=== PATIENT | female | born 1970 | race Caucasian/White ===

== ENCOUNTER → 2018-12-23 | Outpatient (CLI) | payer OTHER ==
--- NOTE | 2018-12-27 09:48 | US ---
EXAMINATION TYPE: US pelvis complete transvag DATE OF EXAM: 12/23/2018 COMPARISON: Pelvic ultrasound February 29, 2012 CLINICAL HISTORY: R10.2 Pelvic and perineal pain. History of endometriosis. TECHNIQUE: Transvaginal (TV) and Transabdominal (TA) . Transabdominal sonographic images of the pel vis were acquired. Transvaginal sonographic images were medically necessary to better assess the fol lowing anatomy: ovaries Date of LMP: 12/09/2018 EXAM MEASUREMENTS: Uterus: 10.6 x 4.4 x 5.0 cm Endometrial Stripe: 0.8 cm Right Ovary: 3.3 x 1.6 x 1.6 cm Left Ovary: 2.9 x 2.2 x 1.7 cm History of C section 1. Uterus: Anteverted wnl 2. Endometrium: wnl 3. Right Ovary: wnl 4. Left Ovary: wnl 5. Bilateral Adnexa: wnl 6. Posterior cul-de-sac: no free fluid Anteverted uterus is seen. Endometrial stripe is within normal limits for early secretory phase of me nstrual cycle. No free fluid is seen in pelvic cul-de-sac. Both ovaries are seen best during transvaginal evaluation and are normal in size. No suspicious adnex al masses are seen. IMPRESSION: No suspicious finding is seen to account for patient's symptoms of pain.
== END | disposition home or self-care (01) ==
LOC: RADUSWWP 16:05
PROVIDERS: ATTEND Internal Medicine
DX: R10.2 Pelvic and perineal pain (principal)
CPT/HCPCS: 76830; 76856

== ENCOUNTER 2019-02-02 10:36 | Emergency (ER) | payer OTHER ==
[2019-02-02 10:41] VITALS: RESP 18
--- NOTE | 2019-02-02 11:18 | ED ---
General Adult HPI - General Chief complaint: Abdominal Pain Stated complaint: abd pain Time Seen by Provider: 02/02/19 10:45 Source: patient, RN notes reviewed Mode of arrival: ambulatory Limitations: no limitations - History of Present Illness Initial comments: 48-year-old female presents to the emergency department for a chief complaint of lower abdominal pain x 2 months. Patient states she has had a lower abdominal cramping pain for about 2 months. Patient states this comes and goes in nature. However in the past week pain has worsened. 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 Dallas. Patient did receive an ultrasound which was negative at that time and although she does have an history of endometriosis Dr. Dallas did not think this was associated. Patient has not had a colonoscopy. Patient denies any bladder or bowel changes. Denies any difficult to produce a stool. No melena or hematochezia. Patient denies any nausea or vomiting. She denies any upper abdominal pain. Patient denies fevers or chills. Patient has no other complaints at this time including shortness of breath, chest pain, nausea or vomiting, headache, or visual changes. - Related Data Home Medications Medication Instructions Recorded Confirmed Cyanocobalamin (Vitamin B-12) 1,000 mcg PO DAILY 02/02/19 02/02/19 [Vitamin B-12] Ibuprofen [Motrin Ib] 200 - 600 mg PO Q6H PRN 02/02/19 02/02/19 Levothyroxine/Liothyronine 97 mcg PO HS 02/02/19 02/02/19 Multivitamin,Therapeutic [Thera] 1 tab PO DAILY 02/02/19 02/02/19 Ubidecarenone [Co Q-10] 100 mg PO DAILY 02/02/19 02/02/19 Allergies Allergy/AdvReac Type Severity Reaction Status Date / Time No Known Allergies Allergy Verified 02/02/19 11:53 Review of Systems ROS Statement: Those systems with pertinent positive or pertinent negative responses have been documented in the HPI. ROS Other: All systems not noted in ROS Statement are negative. Past Medical History Past Medical History: Thyroid Disorder History of Any Multi-Drug Resistant Organisms: None Reported Past Surgical History: Hernia Repair, Orthopedic Surgery Additional Past Surgical History / Comment(s): cranial nerve surgery Past Psychological History: No Psychological Hx Reported Smoking Status: Never smoker Past Alcohol Use History: Occasional Past Drug Use History: None Reported General Exam Limitations: no limitations General appearance: alert, in no apparent distress Head exam: Present: atraumatic, normocephalic, normal inspection Eye exam: Present: normal appearance, PERRL, EOMI. Absent: scleral icterus, conjunctival injection, periorbital swelling ENT exam: Present: normal exam, mucous membranes moist Neck exam: Present: normal inspection, full ROM. Absent: tenderness, men ingismus, lymphadenopathy Respiratory exam: Present: normal lung sounds bilaterally. Absent: respiratory distress, wheezes, rales, rhonchi, stridor Cardiovascular Exam: Present: regular rate, normal rhythm, normal heart sounds. Absent: systolic murmur, diastolic murmur, rubs, gallop, clicks GI/Abdominal exam: Present: soft, tenderness (minimal generalized lower abdominal tenderness), normal bowel sounds. Absent: distended, guarding, rebound, rigid Expanded GI/Abdominal exam: Absent: psoas sign, obturator sign, heel tap sign, Hart's sign, Rovsing's sign, tenderness at McBurney's Point, ascites Course Vital Signs 02/02/19 02/02/19 10:37 13:10 Temperature 98.2 F 98.1 F Pulse Rate 90 74 Respiratory 18 18 Rate Blood Pressure 144/82 117/83 O2 Sat by Pulse 99 98 Oximetry - Reevaluation(s) Reevaluation #1: 02/02/19 11:27 Ultrasound of the pelvis obtained on 12/23/2018 shows no suspicious findings. Medical Decision Making - Medical Decision Making 48-year-old female presents to the emergency department for the pain 2 months. Patient states the pain is cramping in nature. Patient states it worsened over the past week especially last night. Pain has resolved somewhat on presentation. On exam very minimal lower abdominal tenderness. I did recommend CAT scan to patient to evaluate for cause of pain. However patient initially refuses this stating she is very concerned about the radiation as she has had multiple x-rays for her life and would prefer to have an MRI or colonoscopy done. I did state that we cannot give these to the emergency department but CAT scan is the recommended modality through ER. Patient discussed with her for about one hour whether they would like to do the CAT scan and ultimately decided against it. I did educate them that it would be able to determine and rule out multiple causes however she was still rather follow up with GI for an imaging modality that does not utilize radiation. On reevaluation patient is standing comfortably and does not seem in distress whatsoever. Pain has improved significantly. CBC CMP are unremarkable. Urine negative, hCG negative. She has an appointment with her GI physician in 20 days. She will return here sooner if symptoms worsen. - Lab Data Result diagrams: 02/02/19 11:00 02/02/19 11:00 Lab Results 02/02/19 02/02/19 02/02/19 Range/Units 11:00 11:00 11:20 WBC 6.3 (3.8-10.6) k/uL RBC 4.51 (3.80-5.40) m/uL Hgb 13.6 (11.4-16.0) gm/dL Hct 40.4 (34.0-46.0) % MCV 89.7 (80.0-100.0) fL MCH 30.2 (25.0-35.0) pg MCHC 33.6 (31.0-37.0) g/dL RDW 13.7 (11.5-15.5) % Plt Count 257 (150-450) k/uL Neutrophils % 53 % Lymphocytes % 37 % Monocytes % 5 % Eosinophils % 2 % Basophils % 1 % Neutrophils # 3.3 (1.3-7.7) k/uL Lymphocytes # 2.3 (1.0-4.8) k/uL Monocytes # 0.3 (0-1.0) k/uL Eosinophils # 0.1 (0-0.7) k/uL Basophils # 0.0 (0-0.2) k/uL Sodium 141 (137-145) mmol/L Potassium 4.4 (3.5-5.1) mmol/L Chloride 106 (98-107) mmol/L Carbon Dioxide 27 (22-30) mmol/L Anion Gap 8 mmol/L BUN 10 (7-17) mg/dL Creatinine 0.68 (0.52-1.04) mg/dL Est GFR (CKD-EPI)AfAm >90 (>60 ml/min/1.73 sqM) Est GFR (CKD-EPI)NonAf >90 (>60 ml/min/1.73 sqM) Glucose 94 (74-99) mg/dL Calcium 10.1 (8.4-10.2) mg/dL Total Bilirubin 0.5 (0.2-1.3) mg/dL AST 24 (14-36) U/L ALT 26 (9-52) U/L Alkaline Phosphatase 33 L (38-126) U/L Total Protein 7.7 (6.3-8.2) g/dL Albumin 4.8 (3.5-5.0) g/dL Amylase 48 (30-110) U/L Lipase 96 (23-300) U/L Urine Color Urine Appearance (Clear) Urine pH (5.0-8.0) Ur Specific [place] (1.001-1.035) Urine Protein (Negative) Urine Glucose (UA) (Negative) Urine Ketones (Negative) Urine Blood (Negative) Urine Nitrite (Negative) Urine Bilirubin (Negative) Urine Urobilinogen (<2.0) mg/dL Ur Leukocyte Esterase (Negative) Urine HCG, Qual Not Detected (Not Detectd) 02/02/19 Range/Units 11:20 WBC (3.8-10.6) k/uL RBC (3.80-5.40) m/uL Hgb (11.4-16.0) gm/dL Hct (34.0-46.0) % MCV (80.0-100.0) fL MCH (25.0-35.0) pg MCHC (31.0-37.0) g/dL RDW (11.5-15.5) % Plt Count (150-450) k/uL Neutrophils % % Lymphocytes % % Monocytes % % Eosinophils % % Basophils % % Neutrophils # (1.3-7.7) k/uL Lymphocytes # (1.0-4.8) k/uL Monocytes # (0-1.0) k/uL Eosinophils # (0-0.7) k/uL Basophils # (0-0.2) k/uL Sodium (137-145) mmol/L Potassium (3.5-5.1) mmol/L Chloride (98-107) mmol/L Carbon Dioxide (22-30) mmol/L Anion Gap mmol/L BUN (7-17) mg/dL Creatinine (0.52-1.04) mg/dL Est GFR (CKD-EPI)AfAm (>60 ml/min/1.73 sqM) Est GFR (CKD-EPI)NonAf (>60 ml/min/1.73 sqM) Glucose (74-99) mg/dL Calcium (8.4-10.2) mg/dL Total Bilirubin (0.2-1.3) mg/dL AST (14-36) U/L ALT (9-52) U/L Alkaline Phosphatase (38-126) U/L Total Protein (6.3-8.2) g/dL Albumin (3.5-5.0) g/dL Amylase (30-110) U/L Lipase (23-300) U/L Urine Color Light Yellow Urine Appearance Clear (Clear) Urine pH 5.5 (5.0-8.0) Ur Specific [place] 1.007 (1.001-1.035) Urine Protein Negative (Negative) Urine Glucose (UA) Negative (Negative) Urine Ketones Negative (Negative) Urine Blood Negative (Negative) Urine Nitrite Negative (Negative) Urine Bilirubin Negative (Negative) Urine Urobilinogen <2.0 (<2.0) mg/dL Ur Leukocyte Esterase Negative (Negative) Urine HCG, Qual (Not Detectd) Disposition Clinical Impression: Abdominal pain Disposition: HOME SELF-CARE Condition: Good Instructions (If sedation given, give patient instructions): Abdominal Pain (ED) Additional Instructions: Please follow up with GI or primary care in 1-2 days. If pain is worsening return here to the emergency department where CAT scan can be completed. Is patient prescribed a controlled substance at d/c from ED?: No Referrals: Marguerite Nelson MD [REFERRING] - 1-2 days Tay Hoang MD [STAFF PHYSICIAN] - 1-2 days Mariluz Mcgovern MD [STAFF PHYSICIAN] - 1-2 days Time of Disposition: 12:55
[2019-02-02] MEDS ORDERED: SODIUM CHLORIDE 0.9% 1,000 ML IV STA (11:19)
[2019-02-02 11:33] LABS: Basophils % (A) 1 %; Eosinophils # (A) 0.1 k/uL (0-0.7); Eosinophils % (A) 2 %; HCT 40.4 % (34.0-46.0); HGB 13.6 gm/dL (11.4-16.0); Lymphocytes # (A) 2.3 k/uL (1.0-4.8); Lymphocytes % (A) 37 %; MCH 30.2 pg (25.0-35.0); MCHC 33.6 g/dL (31.0-37.0); MCV 89.7 fL (80.0-100.0); Mean Platelet Volume 7.5; Monocytes # (A) 0.3 k/uL (0-1.0); Monocytes % (A) 5 %; Neutrophils # (A) 3.3 k/uL (1.3-7.7); Neutrophils % (A) 53 %; Platelet Count 257 k/uL (150-450); RBC 4.51 m/uL (3.80-5.40); RDW 13.7 % (11.5-15.5); WBC 6.3 k/uL (3.8-10.6)
[2019-02-02 11:51] LABS: Appearance,Urine Clear (Clear); Bilirubin,Urine Negative (Negative); Blood,Urine Negative (Negative); Color,Urine Light Yellow; Glucose,Urine (UA) Negative (Negative); Ketones,Urine Negative (Negative); Leukocyte Esterase,Urine Negative (Negative); Nitrite,Urine Negative (Negative); PH, Urine 5.5 (5.0-8.0); Protein,Urine Negative (Negative); Specific Gravity,Urine 1.007 (1.001-1.035); Urobilinogen,Urine <2.0 mg/dL (<2.0)
[2019-02-02 11:57] LABS: ALT 26 U/L (9-52); AST 24 U/L (14-36); Albumin 4.8 g/dL (3.5-5.0); Alkaline Phosphatase 33 U/L (38-126); Amylase 48 U/L (30-110); Anion Gap 8 mmol/L; Blood Urea Nitrogen 10 mg/dL (7-17); Calcium 10.1 mg/dL (8.4-10.2); Carbon Dioxide 27 mmol/L (22-30); Chloride 106 mmol/L (98-107); Glucose 94 mg/dL (74-99); Lipase 96 U/L (23-300); Potassium 4.4 mmol/L (3.5-5.1); Sodium 141 mmol/L (137-145); Total Bilirubin 0.5 mg/dL (0.2-1.3); Total Protein 7.7 g/dL (6.3-8.2)
[2019-02-02 13:22] VITALS: BP 117/83; PULSE 74; TEMP 98.1
== END 2019-02-02 13:10 | disposition home or self-care (01) ==
LOC: EC 10:36
DX: R10.30 Lower abdominal pain, unspecified (principal); R10.817 Generalized abdominal tenderness; E07.9 Disorder of thyroid, unspecified; Z79.899 Other long term (current) drug therapy
CPT/HCPCS: 36415; 80053; 81003; 81025; 82150; 83690; 85025; 99284

== ENCOUNTER → 2019-05-15 | Outpatient (CLI) | payer OTHER ==
[2019-05-15 16:57] LABS: Basophils % (A) 1 %; Eosinophils # (A) 0.2 k/uL (0-0.7); Eosinophils % (A) 3 %; HCT 38.6 % (34.0-46.0); HGB 12.2 gm/dL (11.4-16.0); Lymphocytes # (A) 1.9 k/uL (1.0-4.8); Lymphocytes % (A) 35 %; MCH 29.5 pg (25.0-35.0); MCHC 31.7 g/dL (31.0-37.0); MCV 93.2 fL (80.0-100.0); Mean Platelet Volume 7.6; Monocytes # (A) 0.3 k/uL (0-1.0); Monocytes % (A) 6 %; Neutrophils # (A) 2.9 k/uL (1.3-7.7); Neutrophils % (A) 54 %; Platelet Count 219 k/uL (150-450); RBC 4.14 m/uL (3.80-5.40); RDW 13.6 % (11.5-15.5); WBC 5.5 k/uL (3.8-10.6)
[2019-05-16 01:23] LABS: DHEA Sulfate 77.9 ug/dL (26.0-430.0)
[2019-05-16 01:29] LABS: T4, Free (Free Thyroxine) 0.8 ng/dL (0.80-1.80)
== END | disposition home or self-care (01) ==
LOC: LABWHC1 15:24
PROVIDERS: ATTEND Specialist
DX: R73.09 Other abnormal glucose (principal); N94.3 Premenstrual tension syndrome; D50.9 Iron deficiency anemia, unspecified; D51.9 Vitamin B12 deficiency anemia, unspecified; M35.9 Systemic involvement of connective tissue, unspecified; E03.9 Hypothyroidism, unspecified; E78.6 Lipoprotein deficiency; E07.9 Disorder of thyroid, unspecified; E55.9 Vitamin D deficiency, unspecified; R68.82 Decreased libido; N80.9 Endometriosis, unspecified; F41.9 Anxiety disorder, unspecified; R41.3 Other amnesia; E83.9 Disorder of mineral metabolism, unspecified; R79.9 Abnormal finding of blood chemistry, unspecified; R53.83 Other fatigue; E63.9 Nutritional deficiency, unspecified; Z79.890 Hormone replacement therapy
CPT/HCPCS: 36415; 82627; 82728; 84439; 84443; 84481; 85025

== ENCOUNTER → 2019-12-08 | Outpatient (CLI) | payer OTHER ==
[2019-12-08 07:51] LABS: Basophils % (A) 0 %; Eosinophils # (A) 0.1 k/uL (0-0.7); Eosinophils % (A) 2 %; HCT 39.3 % (34.0-46.0); Lymphocytes # (A) 1.5 k/uL (1.0-4.8); Lymphocytes % (A) 39 %; MCH 30.7 pg (25.0-35.0); MCHC 33.2 g/dL (31.0-37.0); MCV 92.6 fL (80.0-100.0); Mean Platelet Volume 8.4; Monocytes # (A) 0.3 k/uL (0-1.0); Monocytes % (A) 7 %; Neutrophils % (A) 50 %; Platelet Count 233 k/uL (150-450); RBC 4.24 m/uL (3.80-5.40); RDW 12.9 % (11.5-15.5)
[2019-12-08 18:02] LABS: T4, Free (Free Thyroxine) 0.9 ng/dL (0.80-1.80)
[2019-12-08 18:26] LABS: Hemoglobin A1C 5.5 % (4.0-6.0)
== END | disposition home or self-care (01) ==
LOC: LABWHC1 07:15
PROVIDERS: ATTEND Specialist
DX: N94.3 Premenstrual tension syndrome (principal); R73.09 Other abnormal glucose; D50.9 Iron deficiency anemia, unspecified; D51.9 Vitamin B12 deficiency anemia, unspecified; E03.9 Hypothyroidism, unspecified; M35.9 Systemic involvement of connective tissue, unspecified; E07.9 Disorder of thyroid, unspecified; R68.82 Decreased libido; F41.9 Anxiety disorder, unspecified; R41.3 Other amnesia; E53.9 Vitamin B deficiency, unspecified; R53.83 Other fatigue; E83.9 Disorder of mineral metabolism, unspecified; E63.9 Nutritional deficiency, unspecified; Z79.890 Hormone replacement therapy; Z13.21 Encounter for screening for nutritional disorder
CPT/HCPCS: 36415; 82626; 82947; 83036; 83525; 84439; 84443; 84481; 85025

== ENCOUNTER → 2020-05-27 | Outpatient (CLI) | payer OTHER ==
[2020-05-27 19:19] LABS: Ferritin 23.3 ng/mL (10.0-291.0)
[2020-05-27 19:23] LABS: T4, Free (Free Thyroxine) 0.8 ng/dL (0.80-1.80)
[2020-05-27 19:27] LABS: Hemoglobin A1C 5.2 % (4.0-6.0)
== END | disposition home or self-care (01) ==
LOC: LABWHC1 07:02
PROVIDERS: ATTEND Specialist
DX: M35.9 Systemic involvement of connective tissue, unspecified (principal); E03.9 Hypothyroidism, unspecified; R41.3 Other amnesia; E83.9 Disorder of mineral metabolism, unspecified; E07.9 Disorder of thyroid, unspecified; N94.3 Premenstrual tension syndrome; R73.09 Other abnormal glucose; D50.9 Iron deficiency anemia, unspecified; D51.9 Vitamin B12 deficiency anemia, unspecified; R68.82 Decreased libido; E53.9 Vitamin B deficiency, unspecified; R53.83 Other fatigue; E63.9 Nutritional deficiency, unspecified; Z79.890 Hormone replacement therapy; Z13.21 Encounter for screening for nutritional disorder; F41.9 Anxiety disorder, unspecified; N80.9 Endometriosis, unspecified
CPT/HCPCS: 36415; 82627; 82728; 82947; 83036; 83525; 84439; 84443; 84481

== ENCOUNTER → 2020-05-30 | Outpatient (CLI) | payer OTHER ==
--- NOTE | 2020-05-31 09:49 | USB ---
Reason for exam: clinical finding. History: Patient is nulliparous. Indicated problem(s): palpable abnormality, lump or thickening, and pain in the right breast. Physical Findings: Nurse Summary: 2.5cm movable nodule (nurse dw). US Breast Limited RT Technologist: Laurel Segovia Right limited breast ultrasound including focal area of concern, retroareolar and axilla demonstrates a 1.8 x 1.7 x 1.3cm irregular, hypoechoic, vascular lesion at 10 o'clock and a 0.7 x 0.6 x 0.4cm mixed lesion at 9:30. These results were verbally communicated with the patient and result sheet given to the patient on 05/30/20. ASSESSMENT: Highly suggestive of malignancy, BI-RAD 5 RECOMMENDATION: Follow-up diagnostic mammogram of both breasts. Ultrasound core biopsy of the right breast. Called Dr. Dallas's office with mammographic findings and has scheduled an appointment for the patient for 07/11/20 at 8:[address] Mejia. Biopsy scheduled for 06/06/20 at 1:00. PRELIMINARY REPORT CALLED AND FAXED TO DR. MEJIA ON 05/31/20.
--- NOTE | 2020-05-31 09:51 | MM ---
Reason for exam: clinical finding. Last mammogram was performed 2 years and 9 months ago. History: Patient is nulliparous. Indicated problem(s): palpable abnormality, lump or thickening, and pain in the right breast. MG 3D Diag Mammo W/Cad CATA Bilateral CC and MLO view(s) were taken. Prior study comparison: September 01, 2017, bilateral MG 3d diag mammo w/cad CATA. September 05, 2013, CAD bilateral diagnostic mammogram. The breast tissue is heterogeneously dense. This may lower the sensitivity of mammography. Finding: There are intermediate concern, suspicious calcifications in the 1 o'clock position of the right breast consistent with ultrasound mass 6-7cm from the nipple. These results were verbally communicated with the patient and result sheet given to the patient on 05/30/20. ASSESSMENT: Suspicious, BI-RAD 4 RECOMMENDATION: Surgical consultation and ultrasound core biopsy of the right breast. Called Dr. Dallas's office with mammographic findings and has scheduled an appointment for the patient for 07/11/20 at 8:[address] Veliz. Biopsy scheduled for 06/06/20 at 1:00. PRELIMINARY REPORT CALLED AND FAXED TO DR. VELIZ ON 05/31/20.
== END | disposition home or self-care (01) ==
LOC: RADUSWWP 09:44
PROVIDERS: ATTEND Obstetrics & Gynecology
DX: R92.8 Other abnormal and inconclusive findings on diagnostic imaging of breast (principal); N63.11 Unspecified lump in the right breast, upper outer quadrant
CPT/HCPCS: 77062; 77066

== ENCOUNTER → 2020-06-06 | Day surgery (SDC) | payer OTHER ==
[2020-06-06 12:22] VITALS: RESP 18; TEMP 98.5
--- NOTE | 2020-06-06 13:42 | USB ---
EXAMINATION TYPE: US biopsy breast VAD RT DATE OF EXAM: 06/06/2020 CLINICAL HISTORY: R92.8 ABN MAMMO. Abnormal ultrasound. TECHNIQUE: Ultrasound guided core biopsy of right breast. COMPARISON: Prior mammogram and ultrasound May 30, 2020 and older studies. FINDINGS: The procedure of ultrasound guided core biopsy was explained to the patient. Benefits, alternatives, and risks were discussed. An informed consent was then obtained. Case discussed with patient and patient prior to performing. They wished not to have clip placement if possible. The patient was placed in supine positioning for imaging and for the procedure. Preprocedure ultrasound redemonstrates irregular hypoechoic lesion 10:00 position zone BC measuring roughly 1.5 cm long axis. The overlying skin was prepped and draped in usual sterile fashion. Lidocaine is used as anesthetic into the skin and subcutaneous tissue. Lidocaine with epinephrine is used as anesthetic into the deeper tissue up to area of concern in the right breast. Under ultrasound guidance, a vacuum assisted biopsy gun device was used to obtain 3 core samples. Following this, a biopsy clip was deferred due to patient preference, the lesion is still well visualized after sampling and can be localized under ultrasound guidance if desired. The patient tolerated the procedure well without any immediate complication. The patient was kept in the radiology department for short stay after the procedure and then discharged home in stable condition. IMPRESSION: Successful, uncomplicated ultrasound guided core biopsy of area of concern in the right breast, full pathology results to follow. Fairly high index of suspicion noted at time of procedure. 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 See Surgical Pathology Cancer Case Summary. Recommendation Surgical consult of the right breast. RADHA
[2020-06-06 13:55] VITALS: BP 115/68; PULSE 74
== END ==
LOC: RADUSWWP 12:05
PROVIDERS: ATTEND Surgery
DX: C50.911 Malignant neoplasm of unspecified site of right female breast (principal); Z17.0 Estrogen receptor positive status [ER+]
CPT/HCPCS: 88305; 88342; 88341; 19083; J2001

== ENCOUNTER 2020-06-20 11:21 | Day surgery (SDC) | payer OTHER ==
[2020-06-20] MEDS ORDERED: LACTATED RINGERS 1,000 ML IV ONE ×2 (13:04→15:01)
[2020-06-20] MEDS ORDERED: ONDANSETRON 4 MG/2 ML VIAL ONE (13:06)
[2020-06-20] MEDS ORDERED: HEPARIN SODIUM,PORCINE 5,000 UNIT/ML 1 ML VIAL ONE (13:06)
[2020-06-20] MEDS ORDERED: ACETAMINOPHEN TAB 500 MG TAB ONE (13:06)
--- NOTE | 2020-06-20 13:52 | P.GSHP ---
History of Present Illness H&P Date: 06/20/20 Chief Complaint: Right breast cancer Patient here today for Port-A-Cath placement. Recently diagnosed with HER-2 positive right-sided breast cancer 2 cm. Patient has not had a port previously. Plans for neoadjuvant chemotherapy to begin in the next 1-2 weeks. Past Medical History Past Medical History: Thyroid Disorder History of Any Multi-Drug Resistant Organisms: None Reported Past Surgical History: Section, Hernia Repair, Orthopedic Surgery Additional Past Surgical History / Comment(s): cranial nerve surgery, metal pin in right leg Past Anesthesia/Blood Transfusion Reactions: Postoperative Nausea & Vomiting (PONV) Past Psychological History: No Psychological Hx Reported Smoking Status: Never smoker Past Alcohol Use History: Occasional Past Drug Use History: None Reported Medications and Allergies Home Medications Medication Instructions Recorded Confirmed Type Cyanocobalamin (Vitamin B-12) 1,000 mcg PO DAILY 02/02/19 06/20/20 History [Vitamin B-12] Ibuprofen [Motrin Ib] 200 - 600 mg PO Q6H PRN 02/02/19 06/20/20 History Levothyroxine/Liothyronine 97 mcg PO AC-BRKFST 02/02/19 06/20/20 History Multivitamin,Therapeutic [Thera] 1 tab PO DAILY 02/02/19 06/20/20 History Ubidecarenone [Co Q-10] 100 mg PO DAILY 02/02/19 06/20/20 History ALPRAZolam [Xanax] 0.25 mg PO BID PRN 06/06/20 06/20/20 History Allergies Allergy/AdvReac Type Severity Reaction Status Date / Time No Known Allergies Allergy Verified 06/20/20 12:43 Surgical - Exam Vital Signs Temp Pulse Resp BP Pulse Ox 99.0 F 81 16 131/78 98 06/20/20 12:51 06/20/20 12:51 06/20/20 12:51 06/20/20 12:51 06/20/20 12:51 Physical exam: General: Well-developed, well-nourished HEENT: Normocephalic, sclerae nonicteric Abdomen: Nontender, nondistended Extremities: No edema Neuro: Alert and oriented Assessment and Plan (1) Breast cancer in female Narrative/Plan: Will proceed with Port-A-Cath placement at this time. Risks of bleeding, infection, DVT, pneumothorax, catheter malfunction, anesthesia related complications were discussed. The patient understands and wishes to proceed. Current Visit: Yes Status: Acute Code(s): C50.919 - MALIGNANT NEOPLASM OF UNSP SITE OF UNSPECIFIED FEMALE BREAST SNOMED Code(s): 266949017
[2020-06-20] MEDS ORDERED: LIDOCAINE 1% INJ 10MG/ML (20 ML MDV) ONE (14:40)
[2020-06-20] MEDS ORDERED: fentaNYL (PF) 50 MCG/ML 2 ML AMP ONE (14:40)
[2020-06-20] MEDS ORDERED: PROPOFOL 10 MG/ML 20 ML VIAL IV ONE (14:40)
[2020-06-20] MEDS ORDERED: MIDAZOLAM 2 MG/2 ML VIAL ONE (14:40)
[2020-06-20] MEDS ORDERED: LIDOCAINE 1% INJ 10MG/ML (20 ML MDV) SQ ONE ×2 (15:11→15:30)
[2020-06-20] MEDS ORDERED: traMADol 50 MG TAB PO PRN (15:47)
[2020-06-20] MEDS ORDERED: NALOXONE 0.4 MG/ML 1 ML VIAL IV PRN (15:47)
--- NOTE | 2020-06-20 15:52 | P.OP ---
Date of Procedure: 06/20/20 Procedure(s) Performed: PREOPERATIVE DIAGNOSIS: Right-sided breast cancer POSTOPERATIVE DIAGNOSIS: Same PROCEDURE: Port-A-Cath placement with fluoroscopic and ultrasound guidance SURGEON: Jose Alfredo EBL: Minimal ANESTHESIA: Sedation COMPLICATIONS: None OPERATIVE PROCEDURE: Patient was brought and placed on the operative table in the supine position. The patient was sedated per anesthesia that time. The chest and neck were prepped and draped in usual sterile fashion. The ultrasound probe was used to identify the location of the left internal jugular vein. The skin was localized with lidocaine. The Seldinger needle was advanced into the IJ under ultrasound guidance. The wire was advanced through the needle under fluoroscopic guidance into the superior vena cava. A port pocket was created in the left infraclavicular location. The catheter was tunneled from the wire entrance site to the port pocket. The port was then connected to the catheter. The dilator introducer was threaded over the guidewire. The guidewire and dilator were then removed. The catheter was advanced through the introducer and introducer was then removed. The tip was seen to be in the right atrial junction via fluoroscopy. A picture of the radiograph showing the tip at the radial digital junction was taken. Port was flushed with both saline and a Hep- Lock solution. There was good flow both in and out of the port. The port was sutured in underlying tissues using 3-0 silk sutures. The subcutaneous tissues were reapproximated using 3-0 Vicryl sutures and the skin at both locations using 4-0 Monocryl sutures. Skin glue and sterile dressings then applied. DISPOSITION: Stable to recovery room
[2020-06-20 15:58] VITALS: TEMP 96.8
[2020-06-20 16:02] VITALS: RESP 18
[2020-06-20] MEDS ORDERED: traMADol 50 MG TAB ONE (16:46)
--- NOTE | 2020-06-20 16:50 | FL ---
EXAMINATION TYPE: FL guided central line placement DATE OF EXAM: 06/20/2020 FLUOROSCOPY Fluoroscopy time of 22 seconds was used during Port-A-Cath placement. 1 image/s document/s sarah gordon.
--- NOTE | 2020-06-20 17:56 | XR ---
EXAMINATION TYPE: XR chest 1V DATE OF EXAM: 06/20/2020 COMPARISON: NONE HISTORY: Check catheter placement TECHNIQUE: Single view FINDINGS: There is left-sided central venous catheter with the tip in the superior vena cava. Heart a nd mediastinum are normal. There is increased density at the right cardiac border there is probably s ome infiltrate in the posterior right lower lobe. Bony thorax is intact. There is also increased left paraspinal density behind the heart in the left lower lobe. IMPRESSION: Catheter in good position. There is evidence of some bilateral paraspinal infiltrates or mass in the lower chest.
[2020-06-20 18:16] VITALS: BP 113/74; PULSE 62
[2020-06-21] MEDS ORDERED: Pre Op ABX Message 1 EACH MISC MISCELLANE ONE (05:00)
[2020-06-21] MEDS ORDERED: ACETAMINOPHEN TAB 500 MG TAB PO ONE (05:00)
[2020-06-21] MEDS ORDERED: HEPARIN SODIUM,PORCINE 5,000 UNIT/ML 1 ML VIAL SQ ONE (06:00)
== END 2020-06-20 18:17 | disposition home or self-care (01) ==
LOC: OR 11:21
PROVIDERS: ATTEND Surgery
DX: C50.911 Malignant neoplasm of unspecified site of right female breast (principal); E07.9 Disorder of thyroid, unspecified; Z87.19 Personal history of other diseases of the digestive system; Z98.890 Other specified postprocedural states; Z79.1 Long term (current) use of non-steroidal anti-inflammatories (NSAID); Z79.890 Hormone replacement therapy; Z79.899 Other long term (current) drug therapy
CPT/HCPCS: 36561; 81025; 77001; 71045; C1788; J2250; J1644; J0690; J2405; J2001; J3010; J1642; J2704

== ENCOUNTER → 2020-07-04 | Outpatient (CLI) | payer OTHER ==
--- NOTE | 2020-07-04 13:59 | ECHOF ---
Referral Reason:Z01.818 Pre-chemo exposure MEASUREMENTS -------- HEIGHT: 161.3 cm WEIGHT: 62.6 kg BP: RVIDd: 3.1 cm (< 3.3) IVSd: 0.8 cm (0.6 - 1.1) LVIDd: 3.6 cm (3.9 - 5.3) LVPWd: 0.9 cm (0.6 - 1.1) IVSs: 0.9 cm LVIDs: 2.4 cm LVPWs: 1.2 cm LAESV Index (A-L): 26.11 ml/m Ao Diam: 2.3 cm (2.0 - 3.7) AV Cusp: 1.9 cm (1.5 - 2.6) MV EXCURSION: 19.243 mm (> 18.000) MV EF SLOPE: 137 mm/s (70 - 150) EPSS: 0.2 cm MV E Chavo: 0.92 m/s MV DecT: 136 ms MV A Chavo: 0.56 m/s MV E/A Ratio: 1.65 RAP: 5.00 mmHg RVSP: 22.80 mmHg FINDINGS -------- This was a technically adequate study. The left ventricular size is normal. Left ventricular wall thickness is normal. Overall left vent ricular systolic function is normal with, an EF between 55 - 60 %. The diastolic filling pattern is normal for the age of the patient 7.12. The right ventricle is normal in size. Normal LA size by volume 22+/-6 ml/m2. The right atrial size is normal. Interatrial and interventricular septum intact. The aortic valve is trileaflet and appears structurally normal. There is no evidence of aortic regu rgitation. There is no evidence of aortic stenosis. No mitral regurgitation. Mild tricuspid regurgitation present. There is no evidence of pulmonary hypertension. The right v entricular systolic pressure, as measured by Doppler, is 22.80mmHg. There is no pulmonic regurgitation present. The aortic root size is normal. Normal inferior vena cava with normal inspiratory collapse consistent with estimated right atrial pre ssure of 5 mmHg. There is no pericardial effusion. CONCLUSIONS -------- 1. The left ventricular size is normal. 2. Left ventricular wall thickness is normal. 3. Overall left ventricular systolic function is normal with, an EF between 55 - 60 %. 4. Mild tricuspid regurgitation present. DIRECTOR EMPLOYMENT: ROHIT Jacques
== END | disposition home or self-care (01) ==
LOC: RADECHMAIN 12:15
PROVIDERS: ATTEND Internal Medicine Hematology & Oncology
DX: I07.1 Rheumatic tricuspid insufficiency (principal)
CPT/HCPCS: 93306

== ENCOUNTER → 2020-10-24 | Outpatient (CLI) | payer OTHER ==
--- NOTE | 2020-10-24 17:46 | ECHOF ---
Referral Reason:Z01.818 Chemo Exposure MEASUREMENTS -------- HEIGHT: 160.0 cm WEIGHT: 62.6 kg BP: RVIDd: 2.5 cm (< 3.3) IVSd: 1.0 cm (0.6 - 1.1) LVIDd: 3.8 cm (3.9 - 5.3) LVPWd: 1.2 cm (0.6 - 1.1) IVSs: 1.0 cm LVIDs: 2.6 cm LVPWs: 1.4 cm LAESV Index (A-L): 18.25 ml/m Ao Diam: 3.3 cm (2.0 - 3.7) AV Cusp: 1.8 cm (1.5 - 2.6) MV EXCURSION: 22.486 mm (> 18.000) MV EF SLOPE: 108 mm/s (70 - 150) EPSS: 0.8 cm MV E Chavo: 0.73 m/s MV DecT: 174 ms MV A Chavo: 0.61 m/s MV E/A Ratio: 1.20 RAP: 5.00 mmHg RVSP: 29.68 mmHg FINDINGS -------- Sinus rhythm. This was a technically adequate study. The left ventricular size is normal. Left ventricular wall thickness is normal. Overall left vent ricular systolic function is normal with, an EF between 55 - 60 %. The diastolic filling pattern is normal for the age of the patient 7.25. The right ventricle is normal in size. Normal LA size by volume 22+/-6 ml/m2. The right atrial size is normal. Interatrial and interventricular septum intact. The aortic valve is trileaflet and appears structurally normal. There is no evidence of aortic regu rgitation. There is no evidence of aortic stenosis. There is trace mitral regurgitation. Mild tricuspid regurgitation present. There is no evidence of pulmonary hypertension. The right v entricular systolic pressure, as measured by Doppler, is 29.68mmHg. Trace/mild (physiologic) pulmonic regurgitation. The aortic root size is normal. Normal inferior vena cava with normal inspiratory collapse consistent with estimated right atrial pre ssure of 5 mmHg. There is a trivial pericardial effusion present. CONCLUSIONS -------- 1. The left ventricular size is normal. 2. Left ventricular wall thickness is normal. 3. Overall left ventricular systolic function is normal with, an EF between 55 - 60 %. 4. The diastolic filling pattern is normal for the age of the patient 7.25 5. There is trace mitral regurgitation. 6. Mild tricuspid regurgitation present. 7. Trace/mild (physiologic) pulmonic regurgitation. 8. There is a trivial pericardial effusion present. BLUE LEATHER SETTER: Latanya Baird RDCS
== END | disposition home or self-care (01) ==
LOC: RADECHMAIN 10:52
PROVIDERS: ATTEND Internal Medicine Hematology & Oncology
DX: Z01.818 Encounter for other preprocedural examination (principal); I08.1 Rheumatic disorders of both mitral and tricuspid valves; I09.89 Other specified rheumatic heart diseases
CPT/HCPCS: 93306

== ENCOUNTER → 2021-01-23 | Outpatient (CLI) | payer OTHER ==
--- NOTE | 2021-01-24 10:00 | ECHOF ---
Referral Reason:Chemo Exposure Z01.818 MEASUREMENTS -------- HEIGHT: 162.6 cm WEIGHT: 62.1 kg BP: RVIDd: 3.9 cm (< 3.3) IVSd: 0.9 cm (0.6 - 1.1) LVIDd: 4.0 cm (3.9 - 5.3) LVPWd: 0.9 cm (0.6 - 1.1) IVSs: 1.0 cm LVIDs: 2.8 cm LVPWs: 1.4 cm LAESV Index (A-L): 23.85 ml/m Ao Diam: 2.7 cm (2.0 - 3.7) AV Cusp: 2.0 cm (1.5 - 2.6) LA Diam: 2.7 cm (2.7 - 3.8) MV EXCURSION: 21.189 mm (> 18.000) MV EF SLOPE: 52 mm/s (70 - 150) EPSS: 0.5 cm MV E Chavo: 0.53 m/s MV DecT: 175 ms MV A Chavo: 0.45 m/s MV E/A Ratio: 1.19 RAP: 5.00 mmHg RVSP: 26.68 mmHg TAPSE: 20.54 mm FINDINGS -------- Sinus rhythm. This was a technically good study. The left ventricular size is normal. Left ventricular wall thickness is normal. Overall left vent ricular systolic function is normal with, an EF between 55 - 60 %. The diastolic filling pattern is normal for the age of the patient 5.50. The right ventricle is mild to moderately enlarged. Normal LA size by volume 22+/-6 ml/m2. The right atrial size is normal. Interatrial and interventricular septum intact. The aortic valve is trileaflet and appears structurally normal. There is no evidence of aortic regu rgitation. There is no evidence of aortic stenosis. No mitral regurgitation. Mild tricuspid regurgitation present. There is no evidence of pulmonary hypertension. The right v entricular systolic pressure, as measured by Doppler, is 26.68mmHg. There is no pulmonic regurgitation present. The aortic root size is normal. Normal inferior vena cava with normal inspiratory collapse consistent with estimated right atrial pre ssure of 5 mmHg. There is no pericardial effusion. CONCLUSIONS -------- 1. The left ventricular size is normal. 2. Left ventricular wall thickness is normal. 3. Overall left ventricular systolic function is normal with, an EF between 55 - 60 %. 4. The diastolic filling pattern is normal for the age of the patient 5.50 5. The right ventricle is mild to moderately enlarged. 6. Mild tricuspid regurgitation present. CLIENT ACCOUNT SPECIALIST: Salma López RDCS
== END | disposition home or self-care (01) ==
LOC: RADECHMAIN 11:29
PROVIDERS: ATTEND Internal Medicine Hematology & Oncology
DX: Z01.818 Encounter for other preprocedural examination (principal); I07.1 Rheumatic tricuspid insufficiency
CPT/HCPCS: 93306

== ENCOUNTER → 2021-05-06 | Outpatient (CLI) | payer OTHER ==
--- NOTE | 2021-05-07 11:49 | ECHOF ---
Referral Reason:Z01.818 Chemo exposure MEASUREMENTS -------- HEIGHT: 160.0 cm WEIGHT: 61.7 kg BP: RVIDd: 2.6 cm (< 3.3) IVSd: 0.7 cm (0.6 - 1.1) LVIDd: 4.3 cm (3.9 - 5.3) LVPWd: 0.6 cm (0.6 - 1.1) IVSs: 1.2 cm LVIDs: 2.3 cm LVPWs: 1.7 cm LAESV Index (A-L): 33.20 ml/m Ao Diam: 3.1 cm (2.0 - 3.7) AV Cusp: 2.1 cm (1.5 - 2.6) MV EXCURSION: 17.614 mm (> 18.000) MV EF SLOPE: 132 mm/s (70 - 150) EPSS: 0.2 cm MV E Chavo: 0.66 m/s MV DecT: 141 ms MV A Chavo: 0.57 m/s MV E/A Ratio: 1.15 RAP: 5.00 mmHg RVSP: 17.61 mmHg FINDINGS -------- Sinus rhythm. This was a technically good study. LV size, wall thickness and systolic function are normal, with an EF greater than 55%. The left yulissa tricular size is normal. The right ventricle is normal in size. LA is midly dilated 29-33ml/m2. The right atrial size is normal. The aortic valve is trileaflet, and appears structurally normal. No aortic stenosis or regurgitation. Mild mitral regurgitation is present. Mild tricuspid regurgitation present. Right ventricular systolic pressure is normal at < 35 mmHg. There is no pulmonic regurgitation present. There is no pericardial effusion. CONCLUSIONS -------- 1. LV size, wall thickness and systolic function are normal, with an EF greater than 55%. 2. The left ventricular size is normal. 3. The right ventricle is normal in size. 4. LA is midly dilated 29-33ml/m2. 5. The right atrial size is normal. 6. The aortic valve is trileaflet, and appears structurally normal. No aortic stenosis or regurgitati on. 7. Mild mitral regurgitation is present. 8. Mild tricuspid regurgitation present. 9. There is no pericardial effusion. ENTERPRISE SYSTEMS ENGINEER: Salma López RDCS
== END | disposition home or self-care (01) ==
LOC: RADECHMAIN 13:58
PROVIDERS: ATTEND Internal Medicine Hematology & Oncology
DX: Z01.818 Encounter for other preprocedural examination (principal); I08.1 Rheumatic disorders of both mitral and tricuspid valves
CPT/HCPCS: 93306

== ENCOUNTER → 2021-05-16 | Outpatient (CLI) | payer OTHER ==
[2021-05-16 11:25] LABS: Basophils # (A) 0.02 X 10*3/uL (0.00-0.10); Basophils % (A) 0.3 %; Eosinophils # (A) 0.27 X 10*3/uL (0.04-0.35); Eosinophils % (A) 4.5 %; HCT 36.2 % (37.2-46.3); HGB 11.8 g/dL (12.0-15.0); Lymphocytes # (A) 2.32 X 10*3/uL (0.90-5.00); MCH 31.4 pg (27.0-32.0); MCHC 32.6 g/dL (32.0-37.0); MCV 96.3 fL (80.0-97.0); Mean Platelet Volume 9.6 fL (9.5-12.2); Monocytes # (A) 0.51 X 10*3/uL (0.20-1.00); Monocytes % (A) 8.6 %; Neutrophils # (A) 2.82 X 10*3/uL (1.80-7.70); Neutrophils % (A) 47.4 %; Platelet Count 202 X 10*3/uL (140-440); RBC 3.76 X 10*6/uL (4.10-5.20); RDW 13.3 % (11.5-14.5); WBC 5.95 X 10*3/uL (4.50-10.00)
[2021-05-16 12:33] LABS: ALT 20 U/L (8-44); AST 26 U/L (13-35); African American GFR (CKD) 97.6 (60.0-200.0); Albumin/Globulin Ratio 2.05 (1.60-3.17); Alkaline Phosphatase 58 U/L (41-126); BUN/Creat Ratio 16.25 Ratio (12.00-20.00); Calcium 9.6 mg/dL (8.7-10.3); Carbon Dioxide 28.8 mmol/L (21.6-31.8); Chloride 107 mmol/L (96-109); Globulin 2.2 g/dL (1.6-3.3); Glucose 96 mg/dL (70-110); Non-African American GFR(CKD) 84.2 (60.0-200.0); Potassium 4.2 mmol/L (3.5-5.5); Sodium 142 mmol/L (135-145); Total Bilirubin 0.6 mg/dL (0.2-1.2); Total Protein 6.7 g/dL (6.2-8.2)
[2021-05-16 12:37] LABS: Ferritin 26.3 ng/mL (10.0-291.0)
[2021-05-16 12:39] LABS: Insulin Level 8.6 mIU/mL (3.0-25.0)
[2021-05-16 14:46] LABS: Hemoglobin A1C 5.6 % (4.0-6.0)
[2021-05-16 15:38] LABS: Estradiol <11.8 pg/mL; GGT <15 U/L (0-38)
[2021-05-16 15:42] LABS: Progesterone <0.2 ng/mL
== END | disposition home or self-care (01) ==
LOC: LABWHC1 07:58
PROVIDERS: ATTEND Specialist
DX: C50.919 Malignant neoplasm of unspecified site of unspecified female breast (principal); Z13.0 Encounter for screening for diseases of the blood and blood-forming organs and certain disorders involving the immune mechanism; N94.3 Premenstrual tension syndrome; E72.11 Homocystinuria; E63.9 Nutritional deficiency, unspecified; E55.9 Vitamin D deficiency, unspecified; E07.9 Disorder of thyroid, unspecified; E03.9 Hypothyroidism, unspecified; D50.9 Iron deficiency anemia, unspecified; D89.9 Disorder involving the immune mechanism, unspecified; R68.82 Decreased libido; R53.83 Other fatigue; R41.9 Unspecified symptoms and signs involving cognitive functions and awareness
CPT/HCPCS: 36415; 80053; 82670; 82728; 82977; 83036; 83090; 83525; 83735; 84144; 84439; 84443; 84481; 84630; 85025; 86141

== ENCOUNTER → 2021-07-17 | Outpatient (CLI) | payer OTHER ==
--- NOTE | 2021-07-18 09:19 | MM ---
Reason for exam: follow-up at short interval from prior study. Last mammogram was performed 1 year and 2 months ago. History: Patient has history of breast cancer at age 50 and is nulliparous. Lumpectomy of the right breast, December 2020. Chemotherapy, November 2020. Malignant US biopsy breast VAD RT of the right breast, June 06, 2020. Took antineoplastic for 6 months. Physical Findings: Nurse did not find any significant physical abnormalities on exam. MG 3D Diag Mammo W/Cad CATA Bilateral CC and MLO view(s) were taken. Prior study comparison: May 30, 2020, bilateral MG 3d diag mammo w/cad CATA. September 01, 2017, bilateral MG 3d diag mammo w/cad CATA. The breast tissue is heterogeneously dense. This may lower the sensitivity of mammography. Post surgical change right breast with surgical clips. 6 month follow up for assessment of any evolving post therapy change. No significant new findings when compared with previous films. These results were verbally communicated with the patient and result sheet given to the patient on 07/17/21. ASSESSMENT: Probably benign, BI-RAD 3 RECOMMENDATION: Follow-up diagnostic mammogram of the right breast in 6 months.
== END | disposition home or self-care (01) ==
LOC: RADMAMWWP 15:04
PROVIDERS: ATTEND Internal Medicine Hematology & Oncology
DX: R92.2 Inconclusive mammogram (principal); Z85.3 Personal history of malignant neoplasm of breast; Z98.890 Other specified postprocedural states; Z92.21 Personal history of antineoplastic chemotherapy
CPT/HCPCS: 77062; 77066

== ENCOUNTER 2021-07-18 06:34 | Day surgery (SDC) | payer OTHER ==
[2021-07-15 15:23] VITALS: BMI 24.4
[~2021-07-18 06:34] MED LIST: ACETAMINOPHEN TAB 500 MG TAB PO PRN; DEXAMETHASONE SOD PHOSPHATE 4 MG/ML 1 ML VIAL IV ONE; HEPARIN SODIUM,PORCINE/PF 5,000 UNIT/0.5 ML SYRINGE SQ PRN; LIDOCAINE 1% (10MG/ML) FOR IV START INTRADERMA PRN; MIDAZOLAM 2 MG/2 ML VIAL IV PRN; ONDANSETRON 4 MG/2 ML VIAL IVP ONE
[2021-07-18] MEDS ORDERED: HYDROmorphone 0.5 MG/0.5 ML SYRINGE IVP PRN (07:00)
[2021-07-18 07:15] VITALS: TEMP 98.4
[2021-07-18] MEDS: LACTATED RINGERS 1,000 ML IV SCH ×2 (07:28→07:37)
[2021-07-18] MEDS ORDERED: PROPOFOL 10 MG/ML 20 ML VIAL IV ONE (07:35)
[2021-07-18] MEDS ORDERED: MIDAZOLAM 2 MG/2 ML VIAL ONE (07:35)
[2021-07-18] MEDS ORDERED: KETAMINE 10 MG/ML 20 ML VIAL ONE (07:35)
[2021-07-18] MEDS ORDERED: fentaNYL (PF) 50 MCG/ML 2 ML AMP ONE (07:35)
--- NOTE | 2021-07-18 07:45 | P.GSHP ---
History of Present Illness H&P Date: 07/18/21 Chief Complaint: Right breast cancer 51-year-old female here today for Port-A-Cath removal. Patient is near the end of her right breast cancer adjuvant chemotherapy. Underwent surgery earlier this year. No issues with the port. Past Medical History Past Medical History: Cancer, GERD/Reflux, Thyroid Disorder Additional Past Medical History / Comment(s): hx breast cancer 2020-had surg. & is finishing perjeta/herceptin infusion in Aug. History of Any Multi-Drug Resistant Organisms: None Reported Past Surgical History: Breast Surgery, Section, Hernia Repair, Orthopedic Surgery Additional Past Surgical History / Comment(s): cranial nerve surgery, metal pin in right leg, port-a-cath insertion, right breast lumpectomy Past Anesthesia/Blood Transfusion Reactions: Postoperative Nausea & Vomiting (PONV) Smoking Status: Never smoker Medications and Allergies Home Medications Medication Instructions Recorded Confirmed Type Cyanocobalamin (Vitamin B-12) 1,000 mcg PO DAILY 02/02/19 07/18/21 History [Vitamin B-12] Levothyroxine/Liothyronine 101 mcg PO AC-BRKFST 02/02/19 07/18/21 History Multivitamin,Therapeutic [Thera] 1 tab PO DAILY 02/02/19 07/18/21 History Ubidecarenone [Co Q-10] 100 mg PO DAILY 02/02/19 07/18/21 History Biotin [Biotin Disolve] 5,000 mcg PO DAILY 07/15/21 07/18/21 History Burberry 1 tab PO DAILY 07/15/21 07/18/21 History Curcumin 1 tab PO DAILY 07/15/21 07/18/21 History Dim 1 tab PO DAILY 07/15/21 07/18/21 History Flaxseed Oil 1,000 mg PO DAILY 07/15/21 07/18/21 History Green Tea Mason Extract [Green Tea 150 mg PO DAILY 07/15/21 07/18/21 History Extract] Melatonin 6 mg PO HS 07/15/21 07/18/21 History resveratroL [Resveratrol] 100 mg PO DAILY 07/15/21 07/18/21 History Omeprazole 1 tab PO BID 07/18/21 07/18/21 History Allergies Allergy/AdvReac Type Severity Reaction Status Date / Time No Known Allergies Allergy Verified 09/17/21 06:53 Surgical - Exam Vital Signs Temp Pulse Resp BP Pulse Ox 98.4 F 84 16 129/72 100 07/18/21 07:13 07/18/21 07:13 07/18/21 07:13 07/18/21 07:13 07/18/21 07:13 Physical exam: General: Well-developed, well-nourished HEENT: Normocephalic, sclerae nonicteric Abdomen: Nontender, nondistended Extremities: No edema Neuro: Alert and oriented Chest: Left-sided Port-A-Cath noted Assessment and Plan (1) Breast cancer in female Narrative/Plan: I will proceed with Port-A-Cath removal at this time. Current Visit: No Status: Acute Code(s): C50.919 - MALIGNANT NEOPLASM OF UNSP SITE OF UNSPECIFIED FEMALE BREAST SNOMED Code(s): 669244027
[2021-07-18] MEDS ORDERED: LIDOCAINE 1% INJ 10MG/ML (20 ML MDV) SQ ONE ×2 (07:53→07:59)
[2021-07-18] MEDS ORDERED: NALOXONE 0.4 MG/ML 1 ML VIAL IV PRN (08:29)
--- NOTE | 2021-07-18 08:31 | P.OP ---
Date of Procedure: 07/18/21 Procedure(s) Performed: PREOPERATIVE DIAGNOSIS: Breast cancer POSTOPERATIVE DIAGNOSIS: Same PROCEDURE: Port-A-Cath removal SURGEON: Jose Alfredo EBL: Minimal ANESTHESIA: Sedation COMPLICATIONS: None OPERATIVE PROCEDURE: Patient was placed in the supine position. The patient was sedated per anesthesia that time. The chest was prepped and draped in the usual sterile fashion. The skin was localized with Marcaine solution. The previous incision was re-incised using a scalpel. The port was easily excised using accommodation of blunt dissection sharp dissection and electrocautery. The subcutaneous tissues were reapproximated using 3-0 Vicryl sutures. The skin was reapproximated using 4-0 Monocryl sutures. Skin glue was then applied. DISPOSITION: Stable to recovery room
[2021-07-18 08:53] VITALS: BP 96/65; PULSE 64; RESP 16
== END 2021-07-18 09:11 | disposition home or self-care (01) ==
LOC: OR 06:34
PROVIDERS: ATTEND Surgery
DX: Z45.2 Encounter for adjustment and management of vascular access device (principal); C50.411 Malignant neoplasm of upper-outer quadrant of right female breast; K21.9 Gastro-esophageal reflux disease without esophagitis; E07.9 Disorder of thyroid, unspecified; Z79.899 Other long term (current) drug therapy
CPT/HCPCS: 36590; 81025; J2250; J1100; J0690; J2405; J2001; J3010; J2704; J1644

== ENCOUNTER → 2021-10-02 | Outpatient (CLI) | payer OTHER ==
[2021-10-02 15:24] LABS: Basophils # (A) 0.03 X 10*3/uL (0.00-0.10); Basophils % (A) 0.5 %; Eosinophils # (A) 0.37 X 10*3/uL (0.04-0.35); Eosinophils % (A) 5.8 %; HCT 35.8 % (37.2-46.3); HGB 11.6 g/dL (12.0-15.0); Lymphocytes # (A) 2.18 X 10*3/uL (0.90-5.00); Lymphocytes % (A) 34.4 %; MCHC 32.4 g/dL (32.0-37.0); MCV 95.7 fL (80.0-97.0); Mean Platelet Volume 10.1 fL (9.5-12.2); Monocytes # (A) 0.43 X 10*3/uL (0.20-1.00); Monocytes % (A) 6.8 %; Neutrophils # (A) 3.31 X 10*3/uL (1.80-7.70); Neutrophils % (A) 52.2 %; Platelet Count 241 X 10*3/uL (140-440); RBC 3.74 X 10*6/uL (4.10-5.20); RDW 14.4 % (11.5-14.5); WBC 6.34 X 10*3/uL (4.50-10.00)
[2021-10-02 16:02] LABS: Progesterone 0.2 ng/mL
[2021-10-02 18:11] LABS: Ferritin 32.2 ng/mL (10.0-291.0)
[2021-10-02 18:42] LABS: ALT 18 U/L (8-44); AST 18 U/L (13-35); African American GFR (CKD) 100.4 (60.0-200.0); Albumin 4.4 g/dL (3.8-4.9); Albumin/Globulin Ratio 2.01 (1.60-3.17); Alkaline Phosphatase 53 U/L (41-126); BUN/Creat Ratio 20.49 Ratio (12.00-20.00); Calcium 9.5 mg/dL (8.7-10.3); Carbon Dioxide 24.7 mmol/L (20.0-27.5); Chloride 104 mmol/L (96-109); Estradiol <5.0 pg/mL; Globulin 2.2 g/dL (1.6-3.3); Glucose 96 mg/dL (70-110); Non-African American GFR(CKD) 86.7 (60.0-200.0); Potassium 4.5 mmol/L (3.5-5.5); Sodium 143 mmol/L (135-145); Total Bilirubin <0.20 mg/dL (0.30-1.20); Total Protein 6.7 g/dL (6.2-8.2)
[2021-10-02 22:00] LABS: Insulin Level 6.9 mIU/mL (3.0-25.0)
== END | disposition home or self-care (01) ==
LOC: LABWHC1 08:09
PROVIDERS: ATTEND Specialist
DX: D50.9 Iron deficiency anemia, unspecified (principal); E72.11 Homocystinuria; E03.9 Hypothyroidism, unspecified; E63.9 Nutritional deficiency, unspecified; E55.9 Vitamin D deficiency, unspecified; F41.9 Anxiety disorder, unspecified; E07.9 Disorder of thyroid, unspecified; D89.9 Disorder involving the immune mechanism, unspecified; N80.9 Endometriosis, unspecified; N94.3 Premenstrual tension syndrome; R53.83 Other fatigue; R41.9 Unspecified symptoms and signs involving cognitive functions and awareness; R68.82 Decreased libido
CPT/HCPCS: 36415; 80053; 82306; 82670; 82728; 83036; 83090; 83525; 84144; 84439; 84443; 84481; 85025

== ENCOUNTER → 2021-10-03 | Outpatient (CLI) | payer OTHER ==
--- NOTE | 2021-10-03 17:01 | ECHOF ---
Referral Reason:Z01.818 Chemo exposure MEASUREMENTS -------- HEIGHT: 160.0 cm WEIGHT: 64.4 kg BP: RVIDd: 3.5 cm (< 3.3) IVSd: 0.9 cm (0.6 - 1.1) LVIDd: 3.9 cm (3.9 - 5.3) LVPWd: 0.9 cm (0.6 - 1.1) IVSs: 1.2 cm LVIDs: 2.7 cm LVPWs: 1.4 cm LAESV Index (A-L): 23.55 ml/m Ao Diam: 2.5 cm (2.0 - 3.7) AV Cusp: 1.8 cm (1.5 - 2.6) LA Diam: 2.2 cm (2.7 - 3.8) MV EXCURSION: 21.550 mm (> 18.000) MV EF SLOPE: 81 mm/s (70 - 150) EPSS: 0.1 cm MV E Chavo: 0.83 m/s MV DecT: 148 ms MV A Chavo: 0.60 m/s MV E/A Ratio: 1.39 RAP: 5.00 mmHg RVSP: 25.83 mmHg FINDINGS -------- Sinus rhythm. This was a technically adequate study. The left ventricular size is normal. Left ventricular wall thickness is normal. Overall left vent ricular systolic function is normal with, an EF between 55 - 60 %. The diastolic filling pattern is normal for the age of the patient 6.87. The right ventricle is mildly enlarged. Normal LA size by volume 22+/-6 ml/m2. The right atrial size is normal. Interatrial and interventricular septum intact. The aortic valve is trileaflet and appears structurally normal. There is no evidence of aortic regu rgitation. There is no evidence of aortic stenosis. There is trace mitral regurgitation. Mild tricuspid regurgitation present. There is no evidence of pulmonary hypertension. The right v entricular systolic pressure, as measured by Doppler, is 25.83mmHg. There is no pulmonic regurgitation present. The aortic root size is normal. Normal inferior vena cava with normal inspiratory collapse consistent with estimated right atrial pre ssure of 5 mmHg. There is no pericardial effusion. CONCLUSIONS -------- 1. The left ventricular size is normal. 2. Left ventricular wall thickness is normal. 3. Overall left ventricular systolic function is normal with, an EF between 55 - 60 %. 4. The diastolic filling pattern is normal for the age of the patient 6.87 5. The right ventricle is mildly enlarged. 6. There is trace mitral regurgitation. 7. Mild tricuspid regurgitation present. LATH HAND: ROHIT Jacques
== END | disposition home or self-care (01) ==
LOC: RADECHMAIN 14:58
PROVIDERS: ATTEND Internal Medicine Hematology & Oncology
DX: Z01.818 Encounter for other preprocedural examination (principal); I08.1 Rheumatic disorders of both mitral and tricuspid valves
CPT/HCPCS: 93306

== ENCOUNTER 2021-12-03 09:08 | Day surgery (SDC) | payer OTHER ==
[2021-12-01 15:57] VITALS: BMI 24.4
[~2021-12-03 09:08] MED LIST changes: -ACETAMINOPHEN TAB 500 MG TAB PO PRN; -DEXAMETHASONE SOD PHOSPHATE 4 MG/ML 1 ML VIAL IV ONE; -HEPARIN SODIUM,PORCINE/PF 5,000 UNIT/0.5 ML SYRINGE SQ PRN; +LACTATED RINGERS 1,000 ML IV SCH; -MIDAZOLAM 2 MG/2 ML VIAL IV PRN; -ONDANSETRON 4 MG/2 ML VIAL IVP ONE
[2021-12-03] MEDS ORDERED: MIDAZOLAM 2 MG/2 ML VIAL ONE (09:49)
[2021-12-03] MEDS ORDERED: fentaNYL (PF) 50 MCG/ML 2 ML AMP ONE (09:49)
[2021-12-03] MEDS ORDERED: PROPOFOL 10 MG/ML 20 ML VIAL IV ONE (09:49)
[2021-12-03 09:50] VITALS: TEMP 98.9
--- NOTE | 2021-12-03 10:02 | P.PCN ---
Date of Procedure: 12/03/21 Procedure(s) Performed: BRIEF HISTORY: Patient is a 51-year-old, pleasant, white female scheduled for an upper endoscopy as a part of evaluation of epigastric pain for the last 1 year duration. His been on Prilosec 20 mg daily for a few weeks with some improvement in symptoms. Recently has been off the medications and she has daily epigastric pain with no heartburn, no nausea vomiting.. PROCEDURE PERFORMED: Esophagogastroduodenoscopy with biopsy. PREOPERATIVE DIAGNOSIS: Epigastric pain of 1 year duration. IV sedation per anesthesia. PROCEDURE: After informed consent was obtained, the patient was brought into the endoscopy unit. IV sedation was administered by Anesthesia under continuous monitoring. Initially the Olympus GIF-140 video endoscope was inserted into the mouth. Esophagus intubated without any difficulty. It was gradually advanced into the stomach and duodenum and carefully examined. The bulb of the duodenum appeared normal. Along the duodenal sweep there was a 2 cm deep ulcer with duodenal stricture and friable mucosa and biopsies were done from this area. The second part of the duodenum appeared normal. The scope at this time was withdrawn to the stomach, adequately insufflated with air, and upon careful examination, mucosa of the antrum, and mild diffuse gastritis and biopsies were done from this area. The body, cardia and the fundus appeared normal. The scope was then withdrawn into the esophagus. The GE junction was located at 39 cm from the incisors. The esophagus appeared normal. There were no erosions or ulcerations seen and the patient tolerated the procedure well. IMPRESSION: 1. 2 cm deep duodenal ulcer with friable margins along the duodenal sweep with duodenal stricture status post biopsy. 2. Mild antral gastritis. RECOMMENDATIONS: The findings of this examination were discussed with the patient as well as a family. He was advised to follow with the biopsy results. In the meantime I suggested that she started back on omeprazole 20 mg daily to be taken half hour before dinnertime and avoid NSAIDs.
[2021-12-03 10:08] VITALS: RESP 18
[2021-12-03 10:30] VITALS: BP 103/71; PULSE 69
== END 2021-12-03 11:03 | disposition home or self-care (01) ==
LOC: ORWHC2ENDO 09:08
PROVIDERS: ATTEND Internal Medicine Gastroenterology
DX: K29.70 Gastritis, unspecified, without bleeding (principal); K26.9 Duodenal ulcer, unspecified as acute or chronic, without hemorrhage or perforation
CPT/HCPCS: 43239; J2250; J3010; J2704; 88305; 88342

== ENCOUNTER → 2022-03-13 | Outpatient (CLI) | payer OTHER ==
[2022-03-13 16:03] LABS: Basophils # (A) 0.02 X 10*3/uL (0.00-0.10); Basophils % (A) 0.5 %; Eosinophils # (A) 0.11 X 10*3/uL (0.04-0.35); Eosinophils % (A) 2.9 %; HCT 40.1 % (37.2-46.3); HGB 12.8 g/dL (12.0-15.0); Immature Grans, Automated 0 %; Lymphocytes # (A) 1.84 X 10*3/uL (0.90-5.00); Lymphocytes % (A) 47.8 %; MCHC 31.9 g/dL (32.0-37.0); MCV 94.1 fL (80.0-97.0); Mean Platelet Volume 10.6 fL (9.5-12.2); Monocytes # (A) 0.32 X 10*3/uL (0.20-1.00); Monocytes % (A) 8.3 %; NRBC Per 100 WBC 0 /100 WBCS (0.0-0.0); Neutrophils # (A) 1.56 X 10*3/uL (1.80-7.70); Neutrophils % (A) 40.5 %; Platelet Count 186 X 10*3/uL (140-440); RBC 4.26 X 10*6/uL (4.10-5.20); RDW 12.8 % (11.5-14.5); WBC 3.85 X 10*3/uL (4.50-10.00)
[2022-03-13 16:27] LABS: Progesterone 0.3 ng/mL
[2022-03-13 16:53] LABS: ALT 12 U/L (8-44); AST 31 U/L (13-35); African American GFR (CKD) 121.4 (60.0-200.0); Albumin 4.5 g/dL (3.8-4.9); Albumin/Globulin Ratio 1.68 (1.60-3.17); Alkaline Phosphatase 46 U/L (41-126); BUN/Creat Ratio 28.86 Ratio (12.00-20.00); Calcium 9.8 mg/dL (8.7-10.3); Chloride 106 mmol/L (96-109); Globulin 2.7 g/dL (1.6-3.3); Glucose 82 mg/dL (70-110); Non-African American GFR(CKD) 104.7 (60.0-200.0); Potassium 4.5 mmol/L (3.5-5.5); Sodium 141 mmol/L (135-145); Total Protein 7.2 g/dL (6.2-8.2)
[2022-03-13 16:54] LABS: Ferritin 38.4 ng/mL (10.0-291.0)
[2022-03-13 18:11] LABS: Insulin Level 6.7 mIU/mL (3.0-25.0)
[2022-03-13 22:10] LABS: Estradiol 15.3 pg/mL
[2022-03-13 22:47] LABS: C Reactive Protein, High Sens <0.150 mg/L (0.000-3.000)
== END | disposition home or self-care (01) ==
LOC: LABWHC1 08:01
PROVIDERS: ATTEND Specialist
DX: D50.9 Iron deficiency anemia, unspecified (principal); E03.9 Hypothyroidism, unspecified; E72.11 Homocystinuria; E63.9 Nutritional deficiency, unspecified; E07.9 Disorder of thyroid, unspecified; N80.9 Endometriosis, unspecified; F41.9 Anxiety disorder, unspecified; D89.9 Disorder involving the immune mechanism, unspecified; R41.9 Unspecified symptoms and signs involving cognitive functions and awareness
CPT/HCPCS: 36415; 80053; 82306; 82607; 82670; 82728; 83036; 83090; 83525; 84144; 84439; 84443; 84481; 85025; 86141

== ENCOUNTER → 2022-04-03 | Outpatient (CLI) | payer OTHER ==
--- NOTE | 2022-04-07 11:12 | MM ---
Reason for Exam: Follow-up at short interval from prior study. Last screening mammogram was performed 9 month(s) ago. Patient History: Menarche at age 11. Patient has no children. Breast cancer, age 50. 12/2020, Lumpectomy on the Right side. 06/06/2020, Malignant Core Biopsy on the right side. 11/2020, Chemotherapy. Prior Study Comparison: 09/01/2017 Bilateral Diagnostic Mammogram, [facility]. 05/30/2020 Bilateral Diagnostic Mammogram, [facility]. 07/17/2021 Bilateral Diagnostic Mammogram, [facility]. Tissue Density: Right: The breast tissue is heterogeneously dense. This may lower the sensitivity of mammography. Findings: Analyzed By CAD. Postsurgical clips are in the upper outer aspect right breast. There are stable. No significant interval change. Overall Assessment: Benign, BI-RAD 2 Management: Diagnostic Mammogram of both breasts in 6 months. A clinical breast exam by your physician is recommended on an annual basis and results should be correlated with mammographic findings. This exam should not preclude additional follow-up of suspicious palpable abnormalities. Results were given to the patient verbally at the time of exam. Electronically signed and approved by: Jhonny Escobar D.O. Radiologis
== END | disposition home or self-care (01) ==
LOC: RADMAMWWP 13:00
PROVIDERS: ATTEND Internal Medicine Hematology & Oncology
DX: C50.411 Malignant neoplasm of upper-outer quadrant of right female breast (principal)
CPT/HCPCS: 77061; 77065

== ENCOUNTER → 2022-06-08 | Outpatient (CLI) | payer OTHER ==
--- NOTE | 2022-06-08 16:28 | US ---
EXAMINATION TYPE: US mass soft tissue chest/back DATE OF EXAM: 06/08/2022 COMPARISON: NONE CLINICAL HISTORY: C50.411 BREAST CA. Hx breast cancer 2019. Palpable left posterior back. Area of concern scanned. Hypoechoic area seen, nonvascular = 2.2 x 1.6 x 0.5 cm. Contralateral imag es taken. IMPRESSION: 1. Small oval isoechoic nodule at the level of the palpable abnormality is nonspecific. Additional ev aluation. Benefit, MRI could be performed. If there is clinical concern for metastasis, consider PET/ CT.
== END | disposition home or self-care (01) ==
LOC: RADUSWWP 12:21
PROVIDERS: ATTEND Internal Medicine Hematology & Oncology
DX: C50.411 Malignant neoplasm of upper-outer quadrant of right female breast (principal)

== ENCOUNTER → 2022-09-15 | Outpatient (CLI) | payer OTHER ==
[2022-09-15 11:33] LABS: Basophils # (A) 0.02 X 10*3/uL (0.00-0.10); Basophils % (A) 0.5 %; Eosinophils # (A) 0.11 X 10*3/uL (0.04-0.35); Eosinophils % (A) 2.6 %; HCT 40.7 % (37.2-46.3); Immature Grans, Automated 0.2 %; Lymphocytes # (A) 1.98 X 10*3/uL (0.90-5.00); Lymphocytes % (A) 46.4 %; MCH 30.3 pg (27.0-32.0); MCHC 31.9 g/dL (32.0-37.0); MCV 94.9 fL (80.0-97.0); Mean Platelet Volume 10.8 fL (9.5-12.2); Monocytes # (A) 0.31 X 10*3/uL (0.20-1.00); Monocytes % (A) 7.3 %; NRBC Per 100 WBC 0 /100 WBCS (0.0-0.0); Neutrophils # (A) 1.84 X 10*3/uL (1.80-7.70); Platelet Count 193 X 10*3/uL (140-440); RBC 4.29 X 10*6/uL (4.10-5.20); RDW 13.2 % (11.5-14.5); WBC 4.27 X 10*3/uL (4.50-10.00)
[2022-09-15 11:55] LABS: C Reactive Protein, High Sens 0.242 mg/L (0.000-3.000)
[2022-09-15 12:05] LABS: Estradiol <5.0 pg/mL
[2022-09-15 12:22] LABS: Globulin 2.4 g/dL (1.6-3.3)
[2022-09-15 12:23] LABS: ALT 14 U/L (8-44); AST 19 U/L (13-35); African American GFR (CKD) 98.8 (60.0-200.0); Albumin 4.6 g/dL (3.8-4.9); Albumin/Globulin Ratio 1.96 (1.60-3.17); Alkaline Phosphatase 49 U/L (41-126); Blood Urea Nitrogen 15.5 mg/dL (9.0-27.0); Calcium 9.9 mg/dL (8.7-10.3); Carbon Dioxide 26.5 mmol/L (20.0-27.5); Chloride 104 mmol/L (96-109); Ferritin 30.5 ng/mL (10.0-291.0); Glucose 90 mg/dL (70-110); Non-African American GFR(CKD) 85.3 (60.0-200.0); Potassium 4.1 mmol/L (3.5-5.5); Sodium 141 mmol/L (135-145)
[2022-09-15 15:07] LABS: Progesterone 0.2 ng/mL
== END | disposition home or self-care (01) ==
LOC: LABWHC1 07:30
PROVIDERS: ATTEND Family Medicine
DX: R79.9 Abnormal finding of blood chemistry, unspecified (principal); D50.9 Iron deficiency anemia, unspecified; R68.82 Decreased libido; R53.83 Other fatigue; E03.9 Hypothyroidism, unspecified; D89.9 Disorder involving the immune mechanism, unspecified; R41.9 Unspecified symptoms and signs involving cognitive functions and awareness; E63.9 Nutritional deficiency, unspecified; N94.3 Premenstrual tension syndrome; E55.9 Vitamin D deficiency, unspecified; E07.9 Disorder of thyroid, unspecified
CPT/HCPCS: 36415; 80053; 82306; 82670; 82728; 83036; 83090; 83525; 84144; 84439; 84443; 84481; 84630; 85025; 86141

== ENCOUNTER → 2022-09-29 | Outpatient (CLI) | payer OTHER ==
--- NOTE | 2022-09-29 15:48 | USB ---
Patient History: Menarche at age 11. Patient has no children. Breast cancer, age 50. 12/2020, Lumpectomy on the Right side. 06/06/2020, Malignant Core Biopsy on the right side. 11/2020, Chemotherapy. Prior Study Comparison: 05/30/2020 Bilateral Diagnostic Mammogram, [facility]. 07/17/2021 Bilateral Diagnostic Mammogram, [facility]. 04/03/2022 Right MG 3D diag mammo w/cad RT, [facility]. Findings: The whole breast of both breasts, the axilla of both breasts and the retroareolar of both breasts were scanned. No solid or cystic masses are identified in bilateral breasts. Prior 10:00 right breast mass is not identified. The patient has had a lumpectomy over the interval.. Overall Assessment: Negative, BI-RAD 1 Management: Screening Mammogram of both breasts. A clinical breast exam by your physician is recommended on an annual basis and results should be correlated with mammographic findings. This exam should not preclude additional follow-up of suspicious palpable abnormalities. ??Results were given to the patient verbally at the time of exam. Electronically signed and approved by: Jhonny Escobar D.O. Radiologis
== END | disposition home or self-care (01) ==
LOC: RADUSWWP 14:21
PROVIDERS: ATTEND Internal Medicine Hematology & Oncology
DX: Z85.3 Personal history of malignant neoplasm of breast (principal); Z98.890 Other specified postprocedural states

== ENCOUNTER → 2023-02-24 | Outpatient (CLI) | payer OTHER ==
[2023-02-24 11:16] LABS: Basophils # (A) 0.02 X 10*3/uL (0.00-0.10); Basophils % (A) 0.5 %; Eosinophils # (A) 0.12 X 10*3/uL (0.04-0.35); Eosinophils % (A) 2.9 %; HCT 38.8 % (37.2-46.3); HGB 12.6 g/dL (12.0-15.0); Immature Grans, Automated 0.2 %; Lymphocytes % (A) 46.7 %; MCH 30.8 pg (27.0-32.0); MCHC 32.5 g/dL (32.0-37.0); MCV 94.9 fL (80.0-97.0); Mean Platelet Volume 10.9 fL (9.5-12.2); Monocytes # (A) 0.42 X 10*3/uL (0.20-1.00); Monocytes % (A) 10.3 %; NRBC Per 100 WBC 0 /100 WBCS (0.0-0.0); Neutrophils % (A) 39.4 %; Platelet Count 189 X 10*3/uL (140-440); RBC 4.09 X 10*6/uL (4.10-5.20); RDW 12.5 % (11.5-14.5); WBC 4.07 X 10*3/uL (4.50-10.00)
[2023-02-24 11:37] LABS: Insulin Level 7.4 mIU/mL (3.0-25.0)
[2023-02-24 11:40] LABS: ALT 15 U/L (8-44); AST 17 U/L (13-35); African American GFR (CKD) 113.8 (60.0-200.0); Albumin 4.6 g/dL (3.8-4.9); Alkaline Phosphatase 43 U/L (41-126); BUN/Creat Ratio 17.14 Ratio (12.00-20.00); Calcium 9.8 mg/dL (8.7-10.3); Chloride 104 mmol/L (96-109); Chol/HDL Ratio 3.51 Ratio; Glucose 101 mg/dL (70-110); Non-African American GFR(CKD) 98.2 (60.0-200.0); Potassium 4.1 mmol/L (3.5-5.5); Sodium 141 mmol/L (135-145); Total Protein 6.6 g/dL (6.2-8.2)
[2023-02-24 11:50] LABS: Homocysteine 7.16 umol/L (4.00-14.00)
[2023-02-24 14:40] LABS: Estradiol 5.3 pg/mL
== END | disposition home or self-care (01) ==
LOC: LABWHC1 07:52
PROVIDERS: ATTEND Physician Assistant
DX: E03.9 Hypothyroidism, unspecified (principal); D50.9 Iron deficiency anemia, unspecified; R68.82 Decreased libido; E72.11 Homocystinuria; D89.9 Disorder involving the immune mechanism, unspecified; E63.9 Nutritional deficiency, unspecified; N94.3 Premenstrual tension syndrome; E07.9 Disorder of thyroid, unspecified; E55.9 Vitamin D deficiency, unspecified; R43.9 Unspecified disturbances of smell and taste; R53.83 Other fatigue
CPT/HCPCS: 36415; 80053; 80061; 82306; 82670; 83036; 83090; 83525; 84439; 84443; 84481; 85025

== ENCOUNTER → 2023-08-27 | Outpatient (CLI) | payer OTHER ==
[2023-08-27 11:14] LABS: Basophils # (A) 0.03 X 10*3/uL (0.00-0.10); Basophils % (A) 0.6 %; Eosinophils # (A) 0.09 X 10*3/uL (0.04-0.35); Eosinophils % (A) 1.9 %; HCT 40.1 % (37.2-46.3); HGB 13.2 d/dL (12.0-15.0); Lymphocytes # (A) 2.01 X 10*3/uL (0.90-5.00); MCHC 32.9 d/dL (32.0-37.0); MCV 94.1 FL (80.0-97.0); Mean Platelet Volume 10.4 FL (9.5-12.2); Monocytes # (A) 0.43 X 10*3/uL (0.20-1.00); Monocytes % (A) 9.2 %; NRBC Per 100 WBC 0 X 10*3/uL (0.00-0.01); Neutrophils % (A) 45.1 %; Platelet Count 213 X 10*3/uL (140-440); RBC 4.26 X 10*6/uL (4.10-5.20); RDW 13.4 % (11.5-14.5); WBC 4.67 X 10*3/uL (4.50-10.00)
[2023-08-27 17:35] LABS: ALT 12 U/L (8-44); AST 17 U/L (13-35); Albumin 4.6 d/dL (3.8-4.9); Alkaline Phosphatase 39 U/L (41-126); BUN/Creat Ratio 23.86 Ratio (12.00-20.00); Blood Urea Nitrogen 16.7 mg/dL (9.0-27.0); C Reactive Protein <0.30 mg/dL (0.00-0.80); Calcium 9.7 mg/dL (8.7-10.3); Carbon Dioxide 20.1 mmol/L (21.6-31.8); Chloride 102 mmol/L (96-109); Chol/HDL Ratio 3.01 Ratio; Estradiol 51.7 pg/mL; Glucose 94 mg/dL (70-110); LDL Cholesterol,Calculated 135.1 mg/dL (0.0-131.0); Potassium 4.3 mmol/L (3.5-5.5); Sodium 141 mmol/L (135-145); T4, Free (Free Thyroxine) 0.67 ng/dL (0.80-1.80); Total Bilirubin 0.3 mg/dL (0.3-1.2); Total Protein 6.6 d/dL (6.2-8.2); VLDL Calculation 17.66 mg/dL (5.00-40.00)
== END | disposition home or self-care (01) ==
LOC: LABWHC1 07:47
PROVIDERS: ATTEND Family Medicine
DX: E72.11 Homocystinuria (principal); E63.9 Nutritional deficiency, unspecified; E55.9 Vitamin D deficiency, unspecified; N94.3 Premenstrual tension syndrome; D50.9 Iron deficiency anemia, unspecified; E03.9 Hypothyroidism, unspecified; D89.9 Disorder involving the immune mechanism, unspecified; E07.9 Disorder of thyroid, unspecified; R41.9 Unspecified symptoms and signs involving cognitive functions and awareness; R68.82 Decreased libido; R53.83 Other fatigue
CPT/HCPCS: 36415; 80053; 80061; 82306; 82533; 82670; 83036; 83525; 84439; 84443; 84481; 84630; 85025; 86140

== ENCOUNTER → 2023-09-30 | Outpatient (CLI) | payer OTHER ==
--- NOTE | 2023-09-30 14:20 | USB ---
Reason for Exam: Follow-up at short interval from prior study. Patient History: Menarche at age 11. Patient has no children. Breast cancer, age 50. 12/2020, Lumpectomy on the Right side. 06/06/2020, Malignant Core Biopsy on the right side. 11/2020, Chemotherapy. Technique: Method: Whole Breast Handheld. Patient Position: Supine. Prior Study Comparison: 05/30/2020 Bilateral Diagnostic Mammogram, [facility]. 07/17/2021 Bilateral Diagnostic Mammogram, [facility]. 04/03/2022 Right MG 3D diag mammo w/cad RT, [facility]. Findings: The whole breast of both breasts, the axilla of both breasts and the retroareolar of both breasts were scanned. No solid or cystic masses are identified.. Overall Assessment: Incomplete: need additional imaging evaluation, BI-RAD 0 Management: Diagnostic Mammogram of both breasts. A clinical breast exam by your physician is recommended on an annual basis and results should be correlated with mammographic findings. This exam should not preclude additional follow-up of suspicious palpable abnormalities. Results were given to the patient verbally at the time of exam. Electronically signed and approved by: Shankar Miguel M.D. Radiologis
== END | disposition home or self-care (01) ==
LOC: RADUSWWP 12:26
PROVIDERS: ATTEND Internal Medicine Hematology & Oncology
DX: C50.411 Malignant neoplasm of upper-outer quadrant of right female breast (principal); Z85.3 Personal history of malignant neoplasm of breast

== ENCOUNTER → 2023-11-29 | Outpatient (CLI) | payer OTHER ==
[2023-11-29 12:17] LABS: T4, Free (Free Thyroxine) 0.73 ng/dL (0.80-1.80)
== END | disposition home or self-care (01) ==
LOC: LABWHC1 07:33
PROVIDERS: ATTEND Specialist
DX: D50.9 Iron deficiency anemia, unspecified (principal); E72.11 Homocystinuria; E03.9 Hypothyroidism, unspecified; D89.9 Disorder involving the immune mechanism, unspecified; E63.9 Nutritional deficiency, unspecified; N94.3 Premenstrual tension syndrome; E07.9 Disorder of thyroid, unspecified; E55.9 Vitamin D deficiency, unspecified; R53.83 Other fatigue; R41.9 Unspecified symptoms and signs involving cognitive functions and awareness; R68.82 Decreased libido
CPT/HCPCS: 36415; 84439; 84443; 84481

== ENCOUNTER → 2024-03-06 | Outpatient (CLI) | payer OTHER ==
[2024-03-06 17:19] LABS: Homocysteine 8.04 UMOL/L (4.00-14.00)
[2024-03-06 17:20] LABS: Basophils # (A) 0.02 X 10*3/uL (0.00-0.10); Basophils % (A) 0.4 %; Eosinophils # (A) 0.14 X 10*3/uL (0.04-0.35); Eosinophils % (A) 2.8 %; HCT 40.5 % (37.2-46.3); Immature Grans, Automated 0 %; Lymphocytes # (A) 2.08 X 10*3/uL (0.90-5.00); Lymphocytes % (A) 41.5 %; MCH 30.9 pg (27.0-32.0); MCHC 32.1 g/dL (32.0-37.0); MCV 96.2 FL (80.0-97.0); Mean Platelet Volume 10.8 FL (9.5-12.2); Monocytes # (A) 0.42 X 10*3/uL (0.20-1.00); Monocytes % (A) 8.4 %; NRBC Per 100 WBC 0 X 10*3/uL (0.00-0.01); Neutrophils # (A) 2.35 X 10*3/uL (1.80-7.70); Neutrophils % (A) 46.9 %; Platelet Count 208 X 10*3/uL (140-440); RBC 4.21 X 10*6/uL (4.10-5.20); RDW 13.3 % (11.5-14.5); WBC 5.01 X 10*3/uL (4.50-10.00)
[2024-03-06 17:39] LABS: Chol/HDL Ratio 3.78 Ratio; LDL Cholesterol,Calculated 160.4 mg/dL (0.0-131.0); Magnesium 2.2 mg/dL (1.5-2.4); T4, Free (Free Thyroxine) 0.74 ng/dL (0.80-1.80); VLDL Calculation 16.86 mg/dL (5.00-40.00)
[2024-03-06 18:02] LABS: ALT 14 U/L (8-44); AST 17 U/L (13-35); Albumin 4.7 g/dL (3.8-4.9); Albumin/Globulin Ratio 2.24 Ratio (1.60-3.17); Alkaline Phosphatase 39 U/L (41-126); BUN/Creat Ratio 19.29 Ratio (12.00-20.00); Blood Urea Nitrogen 13.5 mg/dL (9.0-27.0); Calcium 9.4 mg/dL (8.7-10.3); Carbon Dioxide 26.1 mmol/L (21.6-31.8); Chloride 106 mmol/L (96-109); Estradiol <20.0 pg/mL; Globulin 2.1 g/dL (1.6-3.3); Glucose 95 mg/dL (70-110); Potassium 4.4 mmol/L (3.5-5.5); Sodium 141 mmol/L (135-145); Total Bilirubin <0.2 mg/dL (0.3-1.2); Total Protein 6.8 g/dL (6.2-8.2)
[2024-03-06 19:05] LABS: Insulin Level 7.2 mIU/mL (3.0-25.0)
== END | disposition home or self-care (01) ==
LOC: LABWHC1 07:28
PROVIDERS: ATTEND Physician Assistant
DX: E55.9 Vitamin D deficiency, unspecified (principal); D50.9 Iron deficiency anemia, unspecified; E72.11 Homocystinuria; E03.9 Hypothyroidism, unspecified; D89.9 Disorder involving the immune mechanism, unspecified; E63.9 Nutritional deficiency, unspecified; N94.3 Premenstrual tension syndrome; E07.9 Disorder of thyroid, unspecified; R41.9 Unspecified symptoms and signs involving cognitive functions and awareness; R68.82 Decreased libido; R53.83 Other fatigue
CPT/HCPCS: 36415; 80053; 80061; 82306; 82670; 83036; 83090; 83525; 83735; 84439; 84443; 84481; 85025

== ENCOUNTER → 2024-11-09 | Outpatient (CLI) | payer OTHER ==
--- NOTE | 2024-11-09 14:26 | USB ---
Reason for Exam: Clinical finding. Patient History: Menarche at age 11. Patient has no children. Breast cancer, age 50. 12/2020, Lumpectomy on the Right side. 06/06/2020, Malignant Core Biopsy on the right side. 11/2020, Chemotherapy. Technique: Method: Whole Breast Handheld. Prior Study Comparison: 05/30/2020 Bilateral Diagnostic Mammogram, [facility]. 07/17/2021 Bilateral Diagnostic Mammogram, [facility]. 04/03/2022 Right MG 3D diag mammo w/cad RT, [facility]. Findings: The whole breast of both breasts, the axilla of both breasts and the retroareolar of both breasts were scanned. Technique utilized:US breast complete BILAT Image; Ultrasound imaging of: All 4 quadrants, the retroareolar region and axilla. No evidence for organizing fluid collection or mass. Overall Assessment: Negative, BI-RAD 1 Management: Screening Mammogram of both breasts. Patient's last mammogram was 2 years ago recommend immediate screening mammography bilaterally. A clinical breast exam by your physician is recommended on an annual basis and results should be correlated with mammographic findings. This exam should not preclude additional follow-up of suspicious palpable abnormalities. Results were given to the patient verbally at the time of exam. [facility], , 11/09/2024 2:22 PM. Electronically signed and approved by: Alex Pringle DO
== END | disposition home or self-care (01) ==
LOC: RADMAMWWP 13:02
PROVIDERS: ATTEND Internal Medicine Hematology & Oncology
DX: C50.411 Malignant neoplasm of upper-outer quadrant of right female breast (principal); Z85.3 Personal history of malignant neoplasm of breast

== ENCOUNTER → 2025-02-22 | Outpatient (CLI) | payer OTHER ==
[2025-02-22 10:21] LABS: Basophils # (A) 0.03 X 10*3/uL (0.00-0.10); Basophils % (A) 0.6 %; Eosinophils # (A) 0.16 X 10*3/uL (0.04-0.35); Eosinophils % (A) 3.3 %; HGB 12.8 g/dL (12.0-15.0); Immature Grans, Automated 0 %; Lymphocytes # (A) 2.04 X 10*3/uL (0.90-5.00); Lymphocytes % (A) 42.4 %; MCH 30.3 pg (27.0-32.0); MCV 94.6 FL (80.0-97.0); Mean Platelet Volume 10.6 FL (9.5-12.2); Monocytes # (A) 0.38 X 10*3/uL (0.20-1.00); Monocytes % (A) 7.9 %; NRBC Per 100 WBC 0 X 10*3/uL (0.00-0.01); Neutrophils % (A) 45.8 %; Platelet Count 229 X 10*3/uL (140-440); RBC 4.23 X 10*6/uL (4.10-5.20); RDW 13.2 % (11.5-14.5); WBC 4.81 X 10*3/uL (4.50-10.00)
[2025-02-22 10:48] LABS: Carcinoembryonic Antigen <2.0 ng/mL (0.0-4.9); Insulin Level 8.1 mIU/mL (3.0-25.0)
[2025-02-22 10:56] LABS: ALT 17 U/L (8-44); AST 21 U/L (13-35); Albumin 4.8 g/dL (3.8-4.9); Albumin/Globulin Ratio 2.18 Ratio (1.60-3.17); Alkaline Phosphatase 38 U/L (41-126); Calcium 9.6 mg/dL (8.7-10.3); Cancer Antigen 153 16.5 U/mL (0.0-32.3); Carbon Dioxide 24.6 mmol/L (21.6-31.8); Chloride 106 mmol/L (96-109); Chol/HDL Ratio 3.43 Ratio; Estradiol <20.0 pg/mL; Globulin 2.2 g/dL (1.6-3.3); Glucose 98 mg/dL (70-110); LDL Cholesterol,Calculated 168.6 mg/dL (0.0-131.0); Magnesium 2.2 mg/dL (1.5-2.4); Potassium 3.9 mmol/L (3.5-5.5); Sodium 143 mmol/L (135-145); T4, Free (Free Thyroxine) 0.71 ng/dL (0.80-1.80); Total Bilirubin 0.3 mg/dL (0.3-1.2); VLDL Calculation 18.44 mg/dL (5.00-40.00)
[2025-02-22 10:57] LABS: Homocysteine 8.36 UMOL/L (4.00-14.00)
== END | disposition home or self-care (01) ==
LOC: LABWHC1 07:42
PROVIDERS: ATTEND Physician Assistant
DX: E55.9 Vitamin D deficiency, unspecified (principal); E63.9 Nutritional deficiency, unspecified; E07.9 Disorder of thyroid, unspecified; E72.11 Homocystinuria; E03.9 Hypothyroidism, unspecified; D89.9 Disorder involving the immune mechanism, unspecified; N94.3 Premenstrual tension syndrome; D50.9 Iron deficiency anemia, unspecified; R41.9 Unspecified symptoms and signs involving cognitive functions and awareness; R53.83 Other fatigue; R68.82 Decreased libido
CPT/HCPCS: 36415; 80053; 80061; 82306; 82378; 82533; 82607; 82670; 82671; 83036; 83090; 83525; 83735; 84439; 84443; 84481; 85025; 86300